=== PATIENT | female | born 1940 | race Caucasian/White ===

== ENCOUNTER → 2016-05-16 | Outpatient (CLI) | payer MEDICARE, OTHER ==
[~2016-05-16] MED LIST: ADIPEX-P37.5 MG PO; AMITRIPTYLINE H10 M1 PO; ARICEPT10 MG PO; ASPIRIN 81M81 MG/TA2 PO; ATIVAN 0.50.5 MG/TAB PO; ATIVAN 1MG T1 MG/TAB PO; CALCIUM 600/VIT1 CAP PO; CEPHALEXIN500 M1 PO; COMPLETE SENIOR1 TA1 PO; CYMBALTA 60MG60 MG PO; DETROL LA 2 MG2 MG PO; DETROL1 MG; EVOXAC30 MG PO; FEMIRON20 MG PO; HCTZ 25MG TAB25 MG PO; LAMICTAL 100MG100 MG PO; MACROBID 1100 MG/CAP PO; MAGNESIUM250 M1 PO; MIDRIN 325 MG-11 CAP PO; MOTRIN 600600 MG/TAB PO; NAMENDA 10MG TA10 MG PO; NEURONTIN300 MG/CAP PO; OMEGA 31000 MG PO; OMEGA-3 FISH1000 MG PO; OSCAL 500 TAB500 MG PO; PLAVIX 75MG TAB75 MG PO; PRILOSEC 20MG20 MG PO; PRISTIQ 50 MG T50 MG PO; PRISTIQ100 MG PO; REQUIP 1MG T1 MG/TAB PO; RESTASIS0.05% OU; TENORMIN 2525 MG/TAB PO; TENORMIN100 MG PO; TOVIAZ8 MG PO; TYLENOL 325MG325 MG PO; ULTRAM 50MG TAB50 MG PO; VITAMIN B-650 MG PO; VITAMIN D31000 IU PO
== END ==
LOC: BHSO 10:43
DX: F33.1 Major depressive disorder, recurrent, moderate (principal)

== ENCOUNTER → 2016-06-29 | Outpatient (CLI) | payer MEDICARE, OTHER | LOC: BHSO 10:39 | DX: F33.1 Major depressive disorder, recurrent, moderate (principal) ==

== ENCOUNTER → 2016-08-21 | Outpatient (CLI) | payer MEDICARE, OTHER | LOC: BHSO 10:26 | DX: F33.41 Major depressive disorder, recurrent, in partial remission (principal) ==

== ENCOUNTER → 2017-02-19 | Outpatient (CLI) | payer MEDICARE, OTHER | LOC: BHSO 11:14 | DX: F41.1 Generalized anxiety disorder (principal) ==

== ENCOUNTER → 2017-04-09 | Outpatient (CLI) | payer MEDICARE, OTHER | LOC: BHSO 11:11 | DX: F41.1 Generalized anxiety disorder (principal) ==

== ENCOUNTER 2021-03-12 21:59 | Inpatient (IN) | payer MEDICARE, OTHER ==
[~2021-03-12] VITALS: Ht 167.6 cm; Wt 73.1 kg
[~2021-03-12 21:59] MED LIST changes: +CALCIUM 600/VIT1 CA1 PO; -CALCIUM 600/VIT1 CAP PO
--- NOTE | 2021-03-12 23:15 | NUR ---
PT ADMITTED PER STRETCHER FROM [facility]. PT AWAKE AND ORIENTED. PLEASANT. RT LEG ROTATED MEDIAL LEFT. PULSES PRESENT. RT FOOT WARM TO TOUCH.
[2021-03-12 23:55] VITALS: BP 109/43; PULSE 120; TEMP 98.5
--- NOTE | 2021-03-13 00:05 | NUR ---
UA OBTAINED AND SENT TO LAB. TELEMETRY INITIATED. PT DENIES PAIN LONG SHE IS STILL. DENIES NEED FOR PAIN MED AT THIS TIME.
[2021-03-13] MEDS ORDERED: B-121000 MCG PO (00:19)
[2021-03-13] MEDS ORDERED: DETROL LA4 PO (00:21)
[2021-03-13 00:22] LABS: COLLECTION METHOD CATHETER
[2021-03-13] MEDS ORDERED: ELIQUIS 5MG PO (00:27)
[2021-03-13] MEDS ORDERED: NORCO 325 MG-51 TAB PO (00:31)
[2021-03-13] MEDS ORDERED: PRAVACHOL 40MG40 MG PO (00:32)
[2021-03-13] MEDS ORDERED: ULTRAM 50MG TAB50 MG PO (00:35)
[2021-03-13 00:36] LABS: MUCOUS Present /lpf; PH 5 (5-8); SQUAMOUS EPITHELIAL 0-2 /hpf; URINE APPEARANCE Clear; URINE BACTERIA None Seen /hpf; URINE BILIRUBIN Negative (NEGATIVE); URINE BLOOD 1+ (NEGATIVE); URINE COLOR Amber; URINE GLUCOSE Negative (NEGATIVE); URINE KETONE Trace (NEGATIVE); URINE LEUKOCYTE ESTERASE Negative (NEGATIVE); URINE NITRATE Negative (NEGATIVE); URINE PROTEIN(semi-quant) 1+ (NEGATIVE); URINE UROBILINOGEN Negative (NEGATIVE)
[2021-03-13 02:05] LABS: CALCIUM 9.4 mg/dL (8.4-10.2); CREATININE, serum 0.8 mg/dL (0.57-1.11); POTASSIUM 3.4 mmol/L (3.5-4.5)
[2021-03-13 02:17] LABS: TROPONIN-I 0.039 ng/mL (0.00-0.033)
[2021-03-13 02:39] LABS: PRE ALBUMIN 7.9 mg/dL (17.6-36.0)
[2021-03-13 04:33] VITALS: BP 127/54; PULSE 109; TEMP 98.5
[2021-03-13 07:32] LABS: CREATININE, serum 0.81 mg/dL (0.57-1.11); POTASSIUM 3.8 mmol/L (3.5-4.5)
--- NOTE | 2021-03-13 07:41 | NUR ---
critical troponin reported to Dr. Luevano @ [id number].
[2021-03-13 08:08] VITALS: BP 144/59; PULSE 102; TEMP 97.5
[2021-03-13 08:24] LABS: BASO % 0.3 % (0.0-2.0); EOS # 0.2 K/mm3 (0.0-0.7); EOS % 1.8 % (0-4.0); GRAN # 7.8 K/mm3 (1.4-6.5); GRAN % 70.4 % (42.2-75.2); HEMOGLOBIN 10.8 g/dl (12.5-16.0); LYMPH # 1.6 K/mm3 (1.2-3.4); LYMPH % 14.7 % (20.0-51.0); MEAN CELL VOLUME 90 fl (80.0-100.0); MEAN CORPUSCULAR HEMOGLOBIN 29 pg (27.0-31.0); MEAN CORPUSCULAR HGB CONC 32 g/dl (33.0-37.0); MEAN PLATELET VOLUME 11.3 fl (7.4-10.4); MONO # 1.4 K/mm3 (0.1-0.6); MONO % 12.3 % (1.7-9.3); PLATELET COUNT 249 K/mm3 (130-400); RED BLOOD COUNT 3.78 M/mm3 (4.10-5.30); REDCELL DISTRIBUTION WIDTH-CV 15.6 % (11.5-14.5)
[2021-03-13 08:31] LABS: HEMATOCRIT 33.9 % (37.0-47.0)
[2021-03-13 12:00] VITALS: BP 115/57; PULSE 86; TEMP 97.3
--- NOTE | 2021-03-13 13:56 | NUR ---
Kathy met with the pt who stated her preference to return home once medically stable. Son, Renzo Izquierdo present [phone] (DPOA). The pt lives at home alone and was independent, but declining the son states. The pt PCP [facility] and gets her medications from [facility] as well. The pt has used [facility] for PT/OT in the past and would like to use them again. The son states he would like for her to go to a assisted living in [place], [place] where he lives as this is her second fall. The pt uses a walker and CPAP as needed. No other needs stated at this time. Sw to await further recommendations and follow up as needed. D/c: Assisted living vs Rehab.
[2021-03-13 16:00] VITALS: BP 131/55; PULSE 88; TEMP 98.9
--- NOTE | 2021-03-13 17:16 | NUR ---
PT TOO DROWSEY AT THIS TIME FOR PO MEDS.
[2021-03-13 19:21] VITALS: BP 119/54; PULSE 77; TEMP 98
--- NOTE | 2021-03-13 20:20 | NUR ---
PT SLEEPY. O2 SAT WNL. WAKES TO TAKE EVENING MEDS. BUCKS TRACTION IN PLACE. PT ABLE TO MOVE TOES. HAS GOOD SENSATION AND WTT RLE. PAIN CONTROLLED AT THIS TIME.
[2021-03-14] VITALS (10 sets, daily range): BP systolic 95–138; BP diastolic 42–77; PULSE 69–118; TEMP 97–98.7
--- NOTE | 2021-03-14 08:45 | NUR ---
Pt doing okay this morning. She does have complaints that her heels hurt, which is her biggest pain complaint. PRN pain medication given. Pt is aware that she is to not have anything to eat or drink for upcoming surgery. Pills were given with sip of water. Right leg in bucks traction. Pt discussed her son coming up to see her. No other needs verbalized
--- NOTE | 2021-03-14 12:00 | NUR ---
Pt off the floor for surgery
--- NOTE | 2021-03-14 15:17 | NUR ---
The patient has a femur fracture and is having surgery today. CARMEN met with the patient's son, Renzo, to review discharge plan and to discuss post-acute rehab. The patient was in surgery. Renzo is in agreement to rehab upon discharge. He reports that the patient went to [facility] in [place] in the past for rehab. He reports that they were looking at assisted living there, but it was too expensive and the patient wanted to return home. He reports that they are interested in applying for Medicaid. CARMEN consulted [facility] financial counselor. Renzo reports that he needs to talk to the patient after surgery to find out if she would prefer a facility around [place] or in [place]. CARMEN provided Renzo with Medicare.gov's list of SNF's in the [place] area. CARMEN educated Renzo on how if they are interested in a facility in [place], there is a possiblity that the facility may not be able to transport. Renzo verbalized understanding. SW to follow up with the patient and Renzo tomorrow on preferences. *Discharge plan: post-acute rehab*
--- NOTE | 2021-03-14 19:05 | NUR ---
Pt back from surgery. She is awake but drowsy. No pain complaints upon arrival to the floor, but is now stating that she is having some pain, PRN given. She is tolerating liquids, advanced diet.
[2021-03-15] VITALS (13 sets, daily range): BP systolic 89–154; BP diastolic 35–72; PULSE 72–132; TEMP 97.5–99.6
--- NOTE | 2021-03-15 00:07 | NUR ---
PT IN AFIB W RVR 120-140'S PT DENIES S/S. Marlen BLANCO CALLED ORDERED CARDIZEM BOLUS IV TO BE GIVEN. TELE CALLED. PUSHED OVER 2 MIN AND MONITORED. BRINGS HEART RATE DOWN TO 100-120'S. POST OP VITALS CYCLING.
--- NOTE | 2021-03-15 02:04 | NUR ---
afib rvr up to 160's. Marlen saldivar notified.Cardizem gtt going to be started. Pt denies any symptoms.
--- NOTE | 2021-03-15 02:39 | NUR ---
CARDIZEM GTT STARTED AT 5ML/HR. AFTER 13 MIN BP DROPS TO 80/40. NOTIFIED SAMUEL AFTER PUTTING GTT ON STANDBY. RECHECK BP 107/72. RESTART GTT AT 2.5ML/HR. PT AWAKE AND ALERT DENIES S/S/ BP SET PER PROTOCOL.
--- NOTE | 2021-03-15 02:55 | NUR ---
TELE NOTIFIED OF CARDIZEM GTT START- SAMUEL BLANCO AT BEDSIDE CHECKING IN. PT SLEEPING.
--- NOTE | 2021-03-15 04:41 | NUR ---
PT CONVERTED TO NSR-TACHY AT 100/ SAMUEL PA NOTIFIED. EKG ORDERD. WILL CONFIRM.
--- NOTE | 2021-03-15 05:00 | NUR ---
CONFIRMED NSR- GTT STOPPED WILL RESUME CARDIZEM PO PER SAMUEL.
--- NOTE | 2021-03-15 06:50 | NUR ---
awake resting in bed, bedside shift report received from SIL Berg
[2021-03-15 07:02] LABS: MEAN CELL VOLUME 89 fl (80.0-100.0); MEAN CORPUSCULAR HGB CONC 32 g/dl (33.0-37.0); MEAN PLATELET VOLUME 11.8 fl (7.4-10.4); PLATELET COUNT 247 K/mm3 (130-400); RED BLOOD COUNT 2.58 M/mm3 (4.10-5.30); REDCELL DISTRIBUTION WIDTH-CV 15.1 % (11.5-14.5)
[2021-03-15 07:17] LABS: HEMOGLOBIN 7.4 g/dl (12.5-16.0); MEAN CORPUSCULAR HEMOGLOBIN 29 pg (27.0-31.0)
[2021-03-15 07:18] LABS: CALCIUM 8.1 mg/dL (8.4-10.2); CREATININE, serum 0.76 mg/dL (0.57-1.11); POTASSIUM 4.4 mmol/L (3.5-4.5)
--- NOTE | 2021-03-15 07:20 | NUR ---
O2 sat of 89 %. Notify primary nurse. Pt was put on Oxygen 1 ml/nc. improvment to 98%.
--- NOTE | 2021-03-15 07:40 | NUR ---
Shift Assessment completed. Brace on RLE. SCD on LLE. Bruise on right forearm. Perry catheter in place with clear peach color output of 125 ml.Telemetry on. Peripheral IV with Ancef infusing.INT in place on left arm.
--- NOTE | 2021-03-15 07:55 | NUR ---
resting in bed, full assessment completed, see interventions for further info, c/o pain to right leg and medicated with roxicodone 5mg, breakfast ordered
[2021-03-15 07:57] LABS: BAND 9 % (0-10); EOSINOPHIL 2 % (0-4); LYMPHOCYTE 11 % (20.0-51.0); METAMYELOCYTE 2 % (0-0); NEUTROPHILS 70 % (42.0-75.2); PLATELET ESTIMATE NORMAL (NORMAL)
--- NOTE | 2021-03-15 08:00 | NUR ---
Using IS to 750 ml x5.
--- NOTE | 2021-03-15 09:29 | NUR ---
Initial visit; Patient thanked Combat Systems Operator for coming to visit her and offering prayer for healing and thanksgiving. Combat Systems Operator will continue to look in on Maribell, praying for God's blessings.
--- NOTE | 2021-03-15 09:45 | NUR ---
physical therapy was in and assisted her up and into recliner, sitting up and eating breakfast at this time, family in to visit
--- NOTE | 2021-03-15 10:44 | NUR ---
The patient's RN notified CARMEN that the son arrived. CARMEN met with the patient and her son, Renzo, to follow up on preference. Renzo reports that they would prefer [facility] in [place]. He reports that he talked to the Ortho doctor and they informed him that they would be okay with the patient transporting, via private vehicle. The patient and Renzo did not have a second preference at this time. They plan on looking over the Medicare.gov list some more. CARMEN attempted to contact the human resources operations coordinator, Cande, at [facility]. CARMEN left her a voicemail and faxed over the referral. Awaiting screen. [facility]: #[phone] fax#[phone]
--- NOTE | 2021-03-15 11:32 | NUR ---
resting in chair and appears to be dozing, eyes closed, resp quiet and easy
--- NOTE | 2021-03-15 12:44 | NUR ---
resting in recliner, she states she is having pain and son says she has abeen complaining to him of pain, medicated with roxicodone 5mg, encouraged to rest
--- NOTE | 2021-03-15 12:57 | NUR ---
Dr Bui and care team in to see patient
--- NOTE | 2021-03-15 13:14 | NUR ---
Cande, at [facility], reports that they are able to accept the patient. She reports that they are working on bed availability and that they might have a bed available tomorrow, but will definitely have one on . SW to update the patient, her son, and the clinical team. Discharge plan: [facility] SNF*
[2021-03-15 13:22] LABS: HEMATOCRIT 24.8 % (37.0-47.0)
--- NOTE | 2021-03-15 13:41 | NUR ---
awake and states pain is better, physical therapy in and will assist her back to bed
--- NOTE | 2021-03-15 14:53 | NUR ---
appears to be sleeping, in bed with eyes closed, resp quiet and easy
--- NOTE | 2021-03-15 16:45 | NUR ---
appears to be dozing, awakened and assisted her with ordering supper
--- NOTE | 2021-03-15 18:14 | NUR ---
sitting up in bed with supper tray but keeps falling asleep, awakened and repositioned to be able to eat
--- NOTE | 2021-03-15 18:57 | NUR ---
bedside shift report given to SIL Coburn
[2021-03-16] VITALS (10 sets, daily range): BP systolic 104–143; BP diastolic 35–84; PULSE 90–107; TEMP 97.5–99.2
--- NOTE | 2021-03-16 02:36 | NUR ---
PT RESTING QUIETLY IN BED. PT IS DROWSY, AWAKENS EASILY TO SPEECH. PT IS ORIENTED X3, PLEASANT. WHILE ADMINISTERING PT'S SCHEDULED TYLENOL, THE TABLETS FALL INTO PT'S BED WHEN PT BRINGS PILL CUP TO MOUTH. UNABLE TO FIND THE PILLS, NEW PILLS ARE PULLED FROM PYXIS. PT DENIES PAIN, SWALLOWS EASILY. MELENDEZ CATHETER DRAINING DARK CARMEN CLOUDY URINE, 250 ML EMPTIED. PT FALLS BACK ASLEEP, RESPIRATIONS UNLABORED. BED ALARM ON, CALL LIGHT WITHIN REACH.
--- NOTE | 2021-03-16 06:19 | NUR ---
LAB HERE TO DRAW BLOOD. PT AWAKENS EASILY, DENIES PAIN. RESPIRATIONS UNLABORED. O2 ON @ 1L NC. PT HAS BEEN VERY DROWSY THROUGHOUT SHIFT, HAS BEEN ORIENTED TO PERSON ET PLACE BUT NOT TIME. PT HAS MELENDEZ CATHETER DRAINING DARK CARMEN CLOUDY URINE, OUTPUT IS AVERAGING 28 ML/HR. PT DOES NOT HAS IVF INFUSING, HAS NOT BEEN DRINKING WELL R/T DROWSINESS. DR. MARQUIS CALLED ET NOTIFIED OF PT CONDITION, NO NEW ORDERS @ THIS TIME.
[2021-03-16 07:11] LABS: HEMATOCRIT 19.8 % (37.0-47.0); HEMOGLOBIN 6.6 g/dl (12.5-16.0)
[2021-03-16 07:26] LABS: CALCIUM 8.3 mg/dL (8.4-10.2); CREATININE, serum 0.67 mg/dL (0.57-1.11); POTASSIUM 4.3 mmol/L (3.5-4.5)
--- NOTE | 2021-03-16 07:35 | NUR ---
Shift assessment complete.Brace on RLE intact.SCD on left leg.Bruise on right forearm.Indwelling catheter in place with output of 20 ml.clear dark yellow urine. INT on right hand catherer slipping out, no redness or pain. Redness on buttocks.Telemetry on.
[2021-03-16 08:16] LABS: MEAN CELL VOLUME 87 fl (80.0-100.0); MEAN CORPUSCULAR HEMOGLOBIN 28 pg (27.0-31.0); MEAN CORPUSCULAR HGB CONC 32 g/dl (33.0-37.0); MEAN PLATELET VOLUME 11.4 fl (7.4-10.4); PLATELET COUNT 236 K/mm3 (130-400); RED BLOOD COUNT 2.35 M/mm3 (4.10-5.30); REDCELL DISTRIBUTION WIDTH-CV 15.7 % (11.5-14.5)
[2021-03-16 08:36] LABS: BAND 17 % (0-10); BASOPHIL 1 % (0-2); EOSINOPHIL 3 % (0-4); LYMPHOCYTE 21 % (20.0-51.0); NEUTROPHILS 55 % (42.0-75.2); OVALOCYTES 1+; PLATELET ESTIMATE NORMAL (NORMAL)
--- NOTE | 2021-03-16 12:09 | NUR ---
Pt has been sitting up in the chair most of the morning. She reports that she is just uncomfortable. Errol with PT assisted with getting her back to bed. Pt has been pretty drowsy today. She did eat breakfast but then slept off and on. Once back in bed she quickly fell asleep. She does wake easily when spoken to. Blood started at 60ml/hr and remained with pt for first 15 minutes.
--- NOTE | 2021-03-16 13:26 | NUR ---
Follow-up visit; Patient thanked Band Straightener for looking in on her and stated when asked that she is resting well.
--- NOTE | 2021-03-16 13:45 | NUR ---
The patient's hemoglobin was low this morning. She is to receive a unit of blood. CARMEN staffed with the patient's PA. The patient may be ready to discharge by Sunday. CARMEN attempted to contact Cande at [facility] to update. CARMEN left her a voicemail and faxed over updates. CARMEN contacted and updated the patient's son, Renzo. He is in agreement to the plan.
--- NOTE | 2021-03-16 14:05 | NUR ---
Pt doing well tolerating the blood transfusion. She continues to be very drowsy, but does wake easily. No requests for food at this time, will continue to monitor
--- NOTE | 2021-03-16 18:30 | NUR ---
Pt slept most of the afternoon. She did wake easily, but would fall back asleep shortly after conversation ended. No complaints of pain while resting. Pt did do well drinking juice, does not drink much water. She reported she has never been much of a water drinker. No other needs, awaiting her dinner tray
--- NOTE | 2021-03-16 21:30 | NUR ---
PT HAS BEEN ASSISTED TO REPOSITION IN BED WITH 2 ASSIST. WHEN TURNING PT, PT HAS AREA OF RED EXCORIATION/SHEARING ON RIGHT UPPER BUTTOCK ET ANOTHER ON COCCYX. PAD UNDERNEATH PT IS SLIGHTLY DAMP. PT HAS SMEAR OF BM ON PAD ET BUTTOCKS. MELENDEZ CATHETER IS DRAINING. PERICARE PROVIDED. MEPILEX DRESSING PLACED ON AREAS OF EXCORIATION. PT IS ALERT ET ORIENTED, NOT DROWSY NIGHT BEFORE. PT IS PLEASANT, ENCOURAGED TO EAT SNACKS ET DRINK, DENIES PAIN. PT STATES THAT SHE DOES NOT DRINK WATER @ HOME ET DOES NOT LIKE IT. PT IS GIVEN PEPSI ET CHOCOLATE ICE CREAM PER REQUEST. PT TALKS ON PHONE TO SON, DENIES OTHER NEEDS @ THIS TIME. RESPIRATIONS UNLABORED. BED ALARM ON, CALL LIGHT WITHIN REACH.
[2021-03-17] VITALS (7 sets, daily range): BP systolic 117–139; BP diastolic 39–49; PULSE 80–87; TEMP 98–98.6
--- NOTE | 2021-03-17 03:41 | NUR ---
PT REPOSITIONED IN BED ONTO LEFT SIDE WITH 2 ASSIST. DENIES OTHER NEEDS. CALL LIGHT WITHIN REACH.
[2021-03-17 06:58] LABS: HEMATOCRIT 23.1 % (37.0-47.0); HEMOGLOBIN 7.6 g/dl (12.5-16.0); MEAN CELL VOLUME 87 fl (80.0-100.0); MEAN CORPUSCULAR HEMOGLOBIN 29 pg (27.0-31.0); MEAN CORPUSCULAR HGB CONC 33 g/dl (33.0-37.0); MEAN PLATELET VOLUME 11.3 fl (7.4-10.4); PLATELET COUNT 244 K/mm3 (130-400); RED BLOOD COUNT 2.66 M/mm3 (4.10-5.30); REDCELL DISTRIBUTION WIDTH-CV 15.5 % (11.5-14.5)
[2021-03-17 07:10] LABS: CALCIUM 8.4 mg/dL (8.4-10.2); CREATININE, serum 0.63 mg/dL (0.57-1.11); POTASSIUM 4.2 mmol/L (3.5-4.5)
[2021-03-17 07:34] LABS: BAND 9 % (0-10); EOSINOPHIL 1 % (0-4); LYMPHOCYTE 19 % (20.0-51.0); METAMYELOCYTE 2 % (0-0); NEUTROPHILS 64 % (42.0-75.2); NUCLEATED RED BLOOD CELL 1 (0-6); OVALOCYTES 1+; PLATELET ESTIMATE NORMAL (NORMAL); SCHISTOCYTES 1+
--- NOTE | 2021-03-17 09:00 | NUR ---
Pt more awake today compared to yesterday. She is very emotional in the fact that we will be helping her with ADLs. She keeps asking if she could just take herself to the bathroom. Informed her that if she tried she would find that she needs our help. Reassured her that this is what we do and we help people everyday. Pt reports she will call when she needs to go. Bed alarm on. Dressing change was done this am by Dr Luevano. No other needs verbalized, pt had breakfast. Call light within reach
--- NOTE | 2021-03-17 13:00 | NUR ---
Pt sat up in the chair most of the morning. She was very emotional about having to use the commode and people having to help her. She was tearful over this and stated that she shouldn't have to go through this. Pain medication given recently. Pt does have a visitor with her at this time. Pt states it is a neighbor that checks on her.
[2021-03-17 16:06] LABS: HEMATOCRIT 22.1 % (37.0-47.0); HEMOGLOBIN 7.4 g/dl (12.5-16.0)
--- NOTE | 2021-03-17 16:27 | NUR ---
The patient is to tentatively discharge tomorrow, 03/17, if her hemoglobin is stable. SW notified Cande at [facility]. She reports that they are all good to accept the patient tomorrow. She reports that they are not able to take the patient on the weekend though, if the patient is not ready by tomorrow. CARMEN contacted and updated the patient's son, Rnezo. Renzo is in agreement to the plan. He reports that the RN informed him of some concerns about him transporting. He reports that he feels comfortable transporting the patient though and takes full responsiblity for her. He reports that he will be at the hospital tomorrow morning. SW read the IM form outloud to him. Renzo verbalized understanding and gave SW approval to sign the form on his behalf. SW to continue to follow.
--- NOTE | 2021-03-17 18:32 | NUR ---
Pt resting in bed, denies any need for pain medications at this time. Pt repositioned d/t sore on bottom. Legs elevated on pillow. Call light within reach.
--- NOTE | 2021-03-17 23:07 | NUR ---
PT REQUESTS TO GO TO BR, IS A&O X3, PLEASANT. PT IS PIVOT TRANSFERRED WITH 2 ASSIST, WALKER, ET GAIT BELT. PT REQUIRES MODERATE TO MAXIMUM ASSISTANCE. PT STATES THAT SHE FEELS LIKE SHE HAD THE URGE TO URINATE ET THEN IS UNABLE TO. PT DOES HAVE LARGE SOFT FORMED BM. PT IS UNABLE TO STAND TO RETURN TO BED, SIT TO STAND IS USED. PT IS BLADDER SCANNED AFTER RETURNING TO BED, SHOWS 282 ML. PT DENIES URGE OR DISCOMFORT @ THIS TIME.
--- NOTE | 2021-03-17 23:12 | NUR ---
Jasson VALENTE APRN NOTIFIED OF PT BEING UNABLE TO VOID ET RESULTS OF BLADDER SCAN. NO NEW ORDERS @ THIS TIME.
[2021-03-18 03:00] VITALS: BP 114/51; PULSE 60; TEMP 98.4
--- NOTE | 2021-03-18 04:30 | NUR ---
PT REQUESTS TO USE BR, FEELS URGE TO VOID. PT IS ASSISTED TO BSC WITH SIT TO STAND ET 2 ASSIST. PT VOIDS A SMALL AMOUNT OF URINE ET HAS SMALL FORMED HARD BM. PT DENIES ANY PAIN, ASSISTED BACK INTO BED. PT IS BLADDER SCANNED, SHOWS >458 ML URINE. ABDOMEN IS DISTENDED ET FIRM. Jasson VALENTE APRN CALLED ET NOTIFIED. NEW ORDER RECEIVED TO INTERMITTENT CATH PT X1. PT TOLERATES PROCEDURE WELL, STERILE TECHNIQUE USED. 575 ML LIGHT CARMEN URINE IS EMPTIED. CHANTELLE CARE PERFORMED. PT IS GIVEN APPLE JUICE TO DRINK, DENIES OTHER NEEDS. BED ALARM ON, CALL LIGHT WITHIN REACH.
--- NOTE | 2021-03-18 07:37 | NUR ---
Pt had complaints of pain in her right leg, PRN pain medication given. She initially reported that her heels were feeling better then when she was admitted. Removed Morgan hose on left leg and heel is bruised. Pt does have pain when pressure applied. Pt reported that she had to use her heels a lot to try and scoot herself when she fell. Both legs elevated on a pillow with heels floated. INT to right hand was out upon assessment. Will notify physician/midlevel as far as orders if we need to restart a new IV. Gave tracy crackers and pudding as well as ordered her some breakfast.
[2021-03-18 07:44] LABS: HEMATOCRIT 22.6 % (37.0-47.0); HEMOGLOBIN 7.2 g/dl (12.5-16.0)
[2021-03-18 07:55] LABS: CALCIUM 8.5 mg/dL (8.4-10.2); CREATININE, serum 0.65 mg/dL (0.57-1.11); POTASSIUM 4.3 mmol/L (3.5-4.5)
[2021-03-18 09:30] VITALS: BP 103/74; PULSE 90; TEMP 98.6
--- NOTE | 2021-03-18 10:00 | NUR ---
Pt up to the commode via PT. Attempted to void, but was not able to. There was a small amount of incontinent urine on the bed pad. Pt also had a small BM. Pt assisted back to bed.
[2021-03-18 12:38] VITALS: BP 130/42; PULSE 88; TEMP 98.3
[2021-03-18 12:52] LABS: HEMATOCRIT 23.3 % (37.0-47.0); HEMOGLOBIN 7.6 g/dl (12.5-16.0)
[2021-03-18] MEDS ORDERED: VITAMIN C500 MG PO (13:39)
[2021-03-18] MEDS ORDERED: CARDIZEM CD 12120 MG PO (13:45)
--- NOTE | 2021-03-18 13:52 | NUR ---
Pt again assisted up to the commode via PT. PT was able to void. Performed post void residual with 200 being the result after a 250ml void. Hospitalist notified, plan for transfer per private vehicle. Son is here to get her at this time
[2021-03-18] MEDS ORDERED: ROXICODONE 55 MG/TAB PO (13:57)
--- NOTE | 2021-03-18 15:00 | NUR ---
Pt has orders for transfer to [facility] in [place]. Assisted pt with getting dressed and Roddy with PT was present to help transfer her to the car. Pts son is driving her to the facility.
--- NOTE | 2021-03-18 15:02 | NUR ---
The hospitalist plans to recheck the patient's hemoglobin again at noon to make sure that it is stable. If it is stable, the hospitalist plans to discharge the patient. CARMEN contacted and updated the patient's son, Renzo. Renzo plans to go ahead and head up to the hospital. The patient's hemoglobin came back stable. The patient is ready to discharge today. CARMEN notified Gabriela at [facility]. They are all good with taking the patient today. The patient is to discharge today, 03/18, to [facility] for a skilled stay. Transportation was provided by private vehicle, via the patient's son. No additional needs at this time.
[2021-03-18 15:03] VITALS: BP 130/42; PULSE 88; TEMP 98.3
--- NOTE | 2021-03-18 15:32 | NUR ---
Report called to [facility]
== END 2021-03-18 15:00 | DRG 481 ==
LOC: MEDICAL 21:59 → SURG 23:31
PROVIDERS: Orthopaedic Surgery; Physician Assistant; Student in an Organized Health Care Education/Training Program; ADMIT Internal Medicine
PROC: 0QS804Z Reposition Right Femoral Shaft with Internal Fixation Device, Open Approach (ICD-10-PCS; principal; 2021-03-14 14:00)
DX: S72.401A Unspecified fracture of lower end of right femur, initial encounter for closed fracture (principal); M97.01XA Periprosthetic fracture around internal prosthetic right hip joint, initial encounter; M62.82 Rhabdomyolysis; E87.2 Acidosis; I48.19 Other persistent atrial fibrillation; Z86.718 Personal history of other venous thrombosis and embolism; F32.A Depression, unspecified; F41.9 Anxiety disorder, unspecified; G89.29 Other chronic pain; E78.5 Hyperlipidemia, unspecified; Z90.710 Acquired absence of both cervix and uterus; W19.XXXA Unspecified fall, initial encounter; Y92.098 Other place in other non-institutional residence as the place of occurrence of the external cause; Z79.01 Long term (current) use of anticoagulants; R27.0 Ataxia, unspecified; D32.9 Benign neoplasm of meninges, unspecified; E87.6 Hypokalemia; G25.81 Restless legs syndrome; Z66 Do not resuscitate; R79.89 Other specified abnormal findings of blood chemistry; D53.9 Nutritional anemia, unspecified; R33.9 Retention of urine, unspecified; Z86.73 Personal history of transient ischemic attack (TIA), and cerebral infarction without residual deficits
CPT/HCPCS: 99231-AI; 99232-AI; 99233-AI; 99239; A9284; C1713; C1776; J0690; J2250; J2270; J2370; J2704; J3010; J3480; J7050; L1832; P9016

== ENCOUNTER 2021-08-30 02:24 | Observation (INO) | payer MEDICARE, OTHER ==
[~2021-08-30] VITALS: Ht 167.6 cm; Wt 73.0 kg
[~2021-08-30 02:24] MED LIST changes: +B-121000 MCG PO; +CARDIZEM CD 12120 MG PO; +DETROL LA4 PO; +ELIQUIS 5MG PO; +NORCO 325 MG-51 TAB PO; +PRAVACHOL 40MG40 MG PO; +ROXICODONE 55 MG/TAB PO; +VITAMIN C500 MG PO
--- NOTE | 2021-08-30 03:00 | NUR ---
PT ARRIVES PER EMS FROM [facility] [place] [place] WITH FRACTURED RT HIP. IS ALERT AND ORIENTED X4. ORIENTED TO ROOM AND BED CONTROLS.
[2021-08-30] MEDS ORDERED: MELATIN 3 MG-11 TAB PO (03:23)
[2021-08-30 03:26] VITALS: BP 150/68; PULSE 81; TEMP 98.9
[2021-08-30] MEDS ORDERED: DETROL LA4 PO (03:29)
[2021-08-30] MEDS ORDERED: ULTRAM 50MG TAB50 MG PO (03:30)
[2021-08-30] MEDS ORDERED: VITAMIN D31000 IU PO (03:30)
[2021-08-30] MEDS ORDERED: PEPCID 20MG TAB20 MG PO (04:05)
[2021-08-30] MEDS ORDERED: TOVIAZ8 MG PO (04:06)
[2021-08-30] MEDS ORDERED: PROZAC 10MG10 MG PO (04:09)
[2021-08-30] MEDS ORDERED: MIRALAX510G PO (04:14)
--- NOTE | 2021-08-30 05:30 | NUR ---
INSERTED #16FR MELENDEZ CATHETER, IMMEDIATE RETURN OF DK YELLOW URINE. PLACED TO BSD. PT TOLERATED PROCEDURE WITHOUT COMPLAINT.
[2021-08-30 05:51] LABS: COLLECTION METHOD CATHETER
[2021-08-30 05:57] LABS: MUCOUS Present (NOT PRESENT); PH 6 (5-8); SQUAMOUS EPITHELIAL None Seen /hpf (0-10); URINE APPEARANCE Clear (CLEAR/HAZY); URINE BACTERIA None Seen /hpf (NONE SEEN); URINE BILIRUBIN Negative (NEGATIVE); URINE BLOOD Negative (NEGATIVE); URINE COLOR Yellow (YELLOW); URINE GLUCOSE Negative (NEGATIVE); URINE KETONE Negative (NEGATIVE); URINE LEUKOCYTE ESTERASE Negative (NEGATIVE); URINE NITRATE Negative (NEGATIVE); URINE PROTEIN(semi-quant) Negative (NEGATIVE); URINE RBC 0-2 /hpf (0-2); URINE UROBILINOGEN Negative (NEGATIVE)
--- NOTE | 2021-08-30 06:00 | NUR ---
#22 INSYTE INSERTED TO RFA BY JESSICA MUJICA, FLUSHES WELL. MEDICATED WITH SCHEDULED ES TYLENOL AND REQUIP AT THIS TIME.
[2021-08-30 06:06] LABS: BASO % 0.4 % (0.0-2.0); EOS # 0.1 K/mm3 (0.0-0.7); EOS % 1.5 % (0.0-4.0); GRAN # 3.8 K/mm3 (1.4-6.5); GRAN % 69.6 % (42.2-75.2); HEMATOCRIT 37.2 % (37.0-47.0); HEMOGLOBIN 11.7 g/dl (12.5-16.0); LYMPH % 17.7 % (20.0-51.0); MEAN CELL VOLUME 91 fl (80.0-100.0); MEAN CORPUSCULAR HEMOGLOBIN 29 pg (27-31); MEAN CORPUSCULAR HGB CONC 32 g/dl (33.0-37.0); MEAN PLATELET VOLUME 11.3 fl (7.4-10.4); MONO # 0.6 K/mm3 (0.1-0.6); MONO % 10.4 % (1.7-9.3); PLATELET COUNT 216 K/mm3 (130-400); RED BLOOD COUNT 4.11 M/mm3 (4.10-5.30); REDCELL DISTRIBUTION WIDTH-CV 16.9 % (11.5-14.5)
[2021-08-30 06:19] LABS: ALBUMIN 3.6 gm/dL (3.4-4.8); BILIRUBIN,TOTAL 0.9 mg/dL (0.2-1.2); CALCIUM 8.8 mg/dL (8.4-10.2); POTASSIUM 4.2 mmol/L (3.5-4.5); TOTAL PROTEIN 6.4 gm/dL (6.2-8.1)
[2021-08-30 06:20] LABS: INR 1.2 (0.8-3.0); PROTHROMBIN TIME 13.9 SECONDS (9.7-12.8)
[2021-08-30 07:33] VITALS: BP 137/42; PULSE 84; TEMP 98.2
--- NOTE | 2021-08-30 08:45 | NUR ---
ORTHO CALLED AND SAID NO SURGERY REQUIRED. PATIENT CAN EAT. SEE ORDERS.
--- NOTE | 2021-08-30 09:03 | NUR ---
ASSESSMENT COMPLETE. PT. DROWSY BUT ORIENTED. INT PATENT TO RIGHT WRIST. MELENDEZ SECURED AND DEPENDENT TO DRAINAGE. PT WITH PT. CURRENTLY ASSISTING TO CHAIR.NO COMPLIMENTS OF PAIN. CALL LIGHT WITHIN REACH. NO FURTHER NEEDS AT THIS TIME.
--- NOTE | 2021-08-30 10:26 | NUR ---
Initial visit; Patient appeared to appreciate having someone to listen to her story which is a very difficult one to hear. Patient is of Afghan descent and very interesting and thanked Emergency Medical Service Manager for listening and offering prayer. Emergency Medical Service Manager mentioned to Maribell that she is available to her while she is here and left her card with her.
--- NOTE | 2021-08-30 11:53 | NUR ---
NORA Joens. PT. TOLERATED PROCEDURE WELL. PT. DID COMPLAIN OF RIGHT HEEL PAIN. RIGHT LEG WAS PROPPED UP ON A PILLOW AND HEEL ELEVATED OFF BED.
[2021-08-30 12:09] VITALS: BP 120/55; PULSE 76; TEMP 98
--- NOTE | 2021-08-30 13:10 | NUR ---
CARMEN and CARMEN dunlap met with the patient to discuss discharge plan. The patient lives alone in [place]. She states that she has great friend/neighbor support. She reports independence with ADLs and has a walker and wheelchair. She states that she takes sponge bathes now and that she home health services from [facility]. CARMEN dunlap contacted [facility] and confirmed services. The patient receives primary care and her medications from [facility]. She could not recall what her provider's name is, but states that it is a female provider. The patient does not have a DPOA-HC in EMR, but she states that she completed a new DPOA-HC on [place] and designated a couple that helps her. She does not a copy of the document. The patient states that she is and has only one living child: Renzo. She states that her and Renzo had a falling out and she does not want him contacted. She states that Renzo had got her into an assisted living in [place], but she could not afford their rates. She asked to stay with Renzo and his for couple of days, but Renzo's said no. Renzo then brought the patient back to her home in [place]. CARMEN inquired if the patient would be interested in completing a DPOA-HC while here. The patient was interested in this. CARMEN provided the form. The patient designated her friends: Alix Fonseca (ph#[phone]) and Jian Fonseca (ph#[phone]). They are and live in [place]. CARMEN and Mynor, social work student, witnessed the patient's signature. CARMEN provided the patient the original and some copies. CARMEN placed a copy in the patient's chart. The patient has a hip fracture, but will not require surgery. Due to the fracture and the patient's recent falls, CARMEN discussed post-acute rehab. The patient is interested in rehab and chose 1) [facility] 2) [facility]. CARMEN consulted IPR Director. CARMEN contacted and faxed a referral to [facility]. Awaiting screens. The patient also has Medicare [employer] and will need auth from insurance for rehab. The patient's friend/DPOA-HC, Alix, then arrived to the hospital. CARMEN reviewed the above with Alix. Alix is in agreement to the plan and of being the patient's DPOA-HC. *Discharge plan: post-acute rehab*
--- NOTE | 2021-08-30 15:00 | NUR ---
Gloria, at [facility], reports that they have declined the patient. Miracle, IPR Director, states that she has submitted for auth. Awaiting insurance.
--- NOTE | 2021-08-30 15:27 | NUR ---
CARMEN faxed a referral to [facility] and [facility], in the event insurance denies IPR.
--- NOTE | 2021-08-30 15:43 | NUR ---
A rep from [facility] contacted this SW. Their medical center manager is denying IPR and is recommending an alternate level of care. A [id number] can be done and the deadline is 09/01. CARMEN confirmed this with Miracle IPR Director. CARMEN faxed the patient's records to [facility] for auth on SNF. CARMEN notified [facility] and [facility].
[2021-08-30 15:44] VITALS: BP 122/49; PULSE 76; TEMP 99
[2021-08-30 20:16] VITALS: BP 119/48; PULSE 75; TEMP 99.5
--- NOTE | 2021-08-30 22:54 | NUR ---
PATIENT ALERT AND ORIENTED. SITTING IN BED. MEDS ADMINISTERED PER EMAR. PATIENT AMBULATED WITH STANDBY ASSIST AND USE OF WALKER TO BATHROOM AND VOIDED CLEAR YELLOW URINE. INT R FA PATENT AND FLUSHES EASILY. TELE SHOWING SINUS RHYTHM. ICE TO R HIP. DENIES NEEDS FOR ADDITIONAL PAIN MEDS OUTSIDE OF SCHEDULED PROTOCOL. CURRENTLY RESTING IN BED. CALL LIGHT IN REACH. BED ALARM ON.
[2021-08-30 23:47] VITALS: BP 132/43; PULSE 68; TEMP 98.1
[2021-08-31 03:32] VITALS: BP 143/54; PULSE 81; TEMP 97.5
[2021-08-31 08:00] VITALS: BP 116/65; PULSE 71; TEMP 98.1
--- NOTE | 2021-08-31 09:19 | NUR ---
ASSESSMENT COMPLETE. PT. SITTING UP IN CHAIR EATING BREAKFAST. A&O X4. PT. TOLERATED WALKING IN HALWWAY WITH THERAPY WELL. HOPING FOR DISCHARGE. CALL LIGHT WITHIN REACH. NO FURTHER NEEDS AT THIS TIME.
--- NOTE | 2021-08-31 10:16 | NUR ---
Follow-up visit; Patient surprised and appeared happy to see Therapy Technician again. She is preparing to be discharged to Assisted Living.
--- NOTE | 2021-08-31 11:31 | NUR ---
Sandie, at [facility], contacted this SW. They are still reviewing the patient's case and determining if they would need their center medical director to review it. Caitlyn, at [facility], reports that they are able to accept the patient for a skilled stay tomorrow, pending insurance auth. CARMEN met with the patient to update. The patient is agreeable to going to [facility]. If insurance denies SNF, she states that she is fine with going home and resuming services from [facility]. CARMEN contacted and updated the patient's friend/DPOA-HC, Alix. CARMEN faxed updates to [facility] and [facility].
[2021-08-31 11:52] VITALS: BP 120/45; PULSE 72; TEMP 97.7
--- NOTE | 2021-08-31 15:42 | NUR ---
Sandie, [facility], states that insurance has approved a skilled stay. AuthID#[id number]. Starting 08/30, with the next review date of 09/01. CARMEN notified Sandie how [facility] is the accepting facility. Sandie states that [facility] is actually not in contract with [facility] and that the patient could go there, but the patient could occur more [id number] costs. She states that [facility] [place] and [facility] are in-network, along with [facility]. Jorge, at [facility], reports that they have declined the patient; due to past finance issues with the patient. CARMEN met with the patient to update on the above. The patient states that she can not afford to have any [id number] costs from going to [facility]. She states that she would prefer to just return home with [facility]. CARMEN informed her of the option of trying for [facility] or [facility]. The patient declined and states that she would rather return home. CARMEN notified the clinical team. CARMEN contacted and updated the patient's friend/DPOA-HC, Alix.
[2021-08-31 16:00] VITALS: BP 119/90; PULSE 70; TEMP 98.1
[2021-08-31 19:27] VITALS: BP 101/72; PULSE 69; TEMP 98.5
[2021-08-31 23:21] VITALS: BP 125/48; PULSE 66; TEMP 98.6
--- NOTE | 2021-09-01 03:11 | NUR ---
PATIENT ALERT AND ORIENTED. C/O MILD HEEL PAIN AT SHIFT CHANGE, REFUSED MEDICATIONS FOR THIS BUT HEELS FLOATED WITH PILLOW AT THIS TIME. MEDS PER EMAR. UP WITH STANDBY ASSIST AND USE OF WALKER TO BATHROOM, VOIDED CLEAR YELLOW URINE AND A SMALL HARD BROWN STOOL. TELE IN PLACE. INT R FA PATENT AND FLUSHES EASILY. REMAINS ON ROOM AIR. CURRENTLY SITTIN UP IN BED WATCHING TV, DENIES NEEDS, CALL LIGHT IN REACH.
[2021-09-01 03:12] VITALS: BP 121/49; PULSE 69; TEMP 98.6
[2021-09-01 08:00] VITALS: BP 104/84; PULSE 71; TEMP 98.6
--- NOTE | 2021-09-01 08:30 | NUR ---
Pt doing well and is hoping/planning on discharging today. Pt planning on going home but thinking about [place]. Pt denies pain, call light withinr each, pt eating breakfast.
[2021-09-01] MEDS ORDERED: ASPIRIN 81M81 MG/TA2 PO (09:00)
[2021-09-01] MEDS ORDERED: ULTRAM 50MG TAB50 MG PO (09:48)
--- NOTE | 2021-09-01 09:54 | NUR ---
Caitlyn, at [facility], contacted this SW. She states that their finance team checked both the patient's insurances. Her [employer] pays 50% and her [employer] pays for the other 50%, so she should be covered for SNF. She states that they can still take the patient today. CARMEN met with the patient and updated her on the above. The patient verbalized understanding and reports that she is okay with pursuing with [facility], since her [employer] will potato picker the rest of the costs. CARMEN notified the clinical team and [facility]. CARMEN contacted and updated the patient's friend/DPOA-HC, Alix. She is also in agreement to the plan. The patient is to discharge today, 09/01, to [facility] for a skilled stay. Transportation was scheduled at 1100, via [facility]. CARMEN informed the patient, her RN, and Alix of the time. No additional needs at this time.
--- NOTE | 2021-09-01 10:12 | NUR ---
Follow-up visit; Patient preparing to be transferred to [facility] and thanked for her prayers and visits. Slip Bridge Operator will keep Maribell in her prayers.
--- NOTE | 2021-09-01 10:41 | NUR ---
[employer] is denying the patient's inpatient stay. The patient was downgraded to observation. CARMEN and CARMEN student met with the patient to notify and presented and read the Medicare Outpatient Observation Form Outloud to the patient. The patient verbalized understanding and signed the form. CARMEN student provided her with a copy. The patient informed CARMEN that she always had Medicare Part A & B and does not believe she has Medicare [employer]. CARMEN notified admissions and financial counseling and asked them to verify insurance.
[2021-09-01 11:15] VITALS: BP 104/84; PULSE 71; TEMP 98.6
--- NOTE | 2021-09-01 11:26 | NUR ---
Pt did well through the morning. Pt did decide to go to [facility]. Pt dresesed and int removed from right forearm. Pt did have a visitor with her and did follow her down during transport. Report called to [facility]
== END 2021-09-01 11:27 ==
LOC: SURG 02:24
PROVIDERS: Student in an Organized Health Care Education/Training Program; ADMIT Student in an Organized Health Care Education/Training Program
DX: S72.111A Displaced fracture of greater trochanter of right femur, initial encounter for closed fracture (principal); D64.9 Anemia, unspecified; I48.91 Unspecified atrial fibrillation; E78.5 Hyperlipidemia, unspecified; F41.9 Anxiety disorder, unspecified; G25.81 Restless legs syndrome; N32.81 Overactive bladder; Z79.899 Other long term (current) drug therapy; Z79.01 Long term (current) use of anticoagulants
CPT/HCPCS: 99222-AI; 99232-AI; 99239; A4314; G0378

== ENCOUNTER → 2021-09-12 | Outpatient (CLI) | payer MEDICARE, OTHER ==
[~2021-09-12] MED LIST changes: +MELATIN 3 MG-11 TAB PO; +MIRALAX510G PO; +PEPCID 20MG TAB20 MG PO; +PROZAC 10MG10 MG PO
[2021-09-12 12:12] LABS: COLLECTION METHOD CLEAN CATCH
[2021-09-12 12:20] LABS: PH 5 (5-8); SQUAMOUS EPITHELIAL None Seen /hpf (0-10); URINE APPEARANCE Clear (CLEAR/HAZY); URINE BACTERIA None Seen /hpf (NONE SEEN); URINE BILIRUBIN Negative (NEGATIVE); URINE BLOOD Negative (NEGATIVE); URINE COLOR Straw (YELLOW); URINE GLUCOSE Negative (NEGATIVE); URINE KETONE Negative (NEGATIVE); URINE LEUKOCYTE ESTERASE Negative (NEGATIVE); URINE NITRATE Negative (NEGATIVE); URINE PROTEIN(semi-quant) Negative (NEGATIVE); URINE RBC None Seen /hpf (0-2); URINE UROBILINOGEN Negative (NEGATIVE); URINE WBC 0-2 /hpf (0-2)
[2021-09-12 12:21] LABS: BASO % 0.7 % (0.0-2.0); EOS # 0.2 K/mm3 (0.0-0.7); EOS % 3.7 % (0.0-4.0); GRAN # 3.4 K/mm3 (1.4-6.5); GRAN % 63.5 % (42.2-75.2); HEMATOCRIT 39.7 % (37.0-47.0); HEMOGLOBIN 12.2 g/dl (12.5-16.0); LYMPH # 1.3 K/mm3 (1.2-3.4); LYMPH % 23.7 % (20.0-51.0); MEAN CELL VOLUME 94 fl (80.0-100.0); MEAN CORPUSCULAR HEMOGLOBIN 29 pg (27-31); MEAN CORPUSCULAR HGB CONC 31 g/dl (33.0-37.0); MEAN PLATELET VOLUME 11.3 fl (7.4-10.4); MONO # 0.4 K/mm3 (0.1-0.6); PLATELET COUNT 289 K/mm3 (130-400); RED BLOOD COUNT 4.23 M/mm3 (4.10-5.30); REDCELL DISTRIBUTION WIDTH-CV 16.3 % (11.5-14.5)
[2021-09-12 12:22] LABS: ALBUMIN 3.9 gm/dL (3.4-4.8); BILIRUBIN,TOTAL 0.3 mg/dL (0.2-1.2); CALCIUM 9.7 mg/dL (8.4-10.2); CREATININE, serum 0.92 mg/dL (0.57-1.11); POTASSIUM 4.4 mmol/L (3.5-4.5); TOTAL PROTEIN 6.6 gm/dL (6.2-8.1)
== END ==
LOC: ZCOL.LAB 11:44
PROVIDERS: Family Medicine
DX: E78.5 Hyperlipidemia, unspecified (principal); N39.0 Urinary tract infection, site not specified

== ENCOUNTER 2022-01-16 13:50 | Inpatient (IN) | payer MEDICARE, OTHER ==
[~2022-01-16] VITALS: Ht 170.2 cm; Wt 73.2 kg
--- NOTE | 2022-01-16 15:59 | NUR ---
Initial visit; Patient requested visit from Telegraph Equipment Maintainer from Emergency Room. Telegraph Equipment Maintainer listened, offered comfort and prayer, assuring patient she would continue to look in on her while she is hospitalized. Maribell remembers Telegraph Equipment Maintainer from previous visit and states Telegraph Equipment Maintainer offered comfort for her and thanked Telegraph Equipment Maintainer for coming.
[2022-01-16 18:15] VITALS: BP 184/71; PULSE 103; TEMP 98.9
[2022-01-16 18:19] LABS: COLLECTION METHOD CATHETER
[2022-01-16 18:27] LABS: URINE APPEARANCE Clear (CLEAR/HAZY); URINE BLOOD Negative (NEGATIVE); URINE COLOR Yellow (YELLOW); URINE GLUCOSE Negative (NEGATIVE); URINE KETONE Negative (NEGATIVE); URINE NITRATE Negative (NEGATIVE); URINE PROTEIN(semi-quant) Negative (NEGATIVE); URINE UROBILINOGEN 0.2 E.U/dL (0.2-1.0)
[2022-01-16 18:28] LABS: SQUAMOUS EPITHELIAL None Seen /hpf (0-10); URINE BACTERIA None Seen /hpf (NONE SEEN); URINE RBC 0-2 /hpf (0-2); URINE WBC 0-2 /hpf (0-2)
[2022-01-16] MEDS ORDERED: ELIQUIS 5MG PO (18:36)
[2022-01-16] MEDS ORDERED: MYRBETR50MG PO (18:40)
[2022-01-16] MEDS ORDERED: CYMBALTA 60MG60 MG PO (18:41)
--- NOTE | 2022-01-16 19:24 | NUR ---
Patient admitted to room 344 from Er. Patient has Int to Rfa. Perry inserted after orders obtained from Marlen Shrestha, Patient tolerated well and Ua sent to lab. Ekg & labs obtained. Patient Reports elevated pain. Worse pain she has ever had of all of her surgerys, spoke to Marlen Shrestha again and medications ordered and given to patient with a snack. Dinner tray ordered, patient has very dry mouth and complains of hunger. Patient concerned about her purse, I did call and speak to Jian who was with patient when EMS arrived and patient purse and phone are still at home. Patient made aware. Jian to visit patient tmrw morning & bring her belongings. I attempted to complete patient medication list & patient was unsure of her medication, Jian to bring medication list in the morning. Jian to given patient room phone number to call patient. Sangeetha MUJICA to resumes cares.
[2022-01-16 19:49] LABS: PARTIAL THROMBOPLASTIN TIME 36.7 SECONDS (26.0-37.0)
[2022-01-16 19:50] VITALS: BP 152/56; PULSE 108; TEMP 98.7
[2022-01-17] VITALS (7 sets, daily range): BP systolic 112–144; BP diastolic 51–65; PULSE 90–94; TEMP 97.3–99.7
--- NOTE | 2022-01-17 03:11 | NUR ---
PTT 106.6- at goal, no change, continues @ 13 cc/hr, next level ordered @0900
[2022-01-17 07:25] LABS: BASO % 0.2 % (0.0-2.0); EOS # 0.1 K/mm3 (0.0-0.7); EOS % 0.8 % (0.0-4.0); GRAN # 4.7 K/mm3 (1.4-6.5); GRAN % 73.5 % (42.2-75.2); LYMPH % 16.1 % (20.0-51.0); MEAN CELL VOLUME 92 fl (80.0-100.0); MEAN CORPUSCULAR HEMOGLOBIN 30 pg (27-31); MEAN CORPUSCULAR HGB CONC 32 g/dl (33.0-37.0); MEAN PLATELET VOLUME 12.4 fl (7.4-10.4); MONO # 0.6 K/mm3 (0.1-0.6); MONO % 8.9 % (1.7-9.3); PLATELET COUNT 205 K/mm3 (130-400); REDCELL DISTRIBUTION WIDTH-CV 14.5 % (11.5-14.5)
[2022-01-17 07:31] LABS: ALBUMIN 3.1 gm/dL (3.4-4.8); CALCIUM 8.7 mg/dL (8.4-10.2); CREATININE, serum 0.79 mg/dL (0.57-1.11); MAGNESIUM 1.5 mg/dL (1.6-2.6); PHOSPHOROUS 3.3 mg/dL (2.3-4.7); POTASSIUM 3.5 mmol/L (3.5-4.5)
[2022-01-17 07:37] LABS: HEMATOCRIT 34.1 % (37.0-47.0)
--- NOTE | 2022-01-17 10:12 | NUR ---
PT RESTING IN BED HEELS FLOATED WITH BOOTIES. PT REQUESTING PAIN MEDS GIVEN ORDERED. PT'S ELIQUIS BEING HELD FOR SURGERY. HEPARIN RUNNING AT THIS TIME.
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
--- NOTE | 2022-01-17 21:00 | NUR ---
PATIENT IS RESTING IN BED.PATIENT IS AOX1.PATIENT DENIES PAIN.PATIENT TAKES PILLS WHOLE WITH NO TROUBLE.PATIENT IS ON HEPARIN DRIP.PTT WAS DONE NO RATE CHANGE REQUIRED.PATIENT HAS A MELENDEZ DRAINING CLEAR URINE.sAFETY MEASURES IN PLACE.nO OTHER NEEDS AT THIS TIME.
[2022-01-18] VITALS (7 sets, daily range): BP systolic 91–148; BP diastolic 39–57; PULSE 57–89; TEMP 96.3–100.4
--- NOTE | 2022-01-18 05:52 | NUR ---
PATIENT SLEPT FOR THE MOST PART OF THE NIGHT.NO PAIN REPORTED.PATIENT HAS A MELENDEZ DRAINING CLEAR URINE.SAFETY MEASURES IN PLACE.NO OTHER NEEDS AT THIS TIME.
[2022-01-18 06:35] LABS: BASO % 0.3 % (0.0-2.0); EOS # 0.1 K/mm3 (0.0-0.7); EOS % 0.9 % (0.0-4.0); GRAN # 4.8 K/mm3 (1.4-6.5); GRAN % 71.8 % (42.2-75.2); HEMOGLOBIN 10.4 g/dl (12.5-16.0); LYMPH % 14.8 % (20.0-51.0); MEAN CELL VOLUME 92 fl (80.0-100.0); MEAN CORPUSCULAR HEMOGLOBIN 30 pg (27-31); MEAN CORPUSCULAR HGB CONC 32 g/dl (33.0-37.0); MEAN PLATELET VOLUME 12.5 fl (7.4-10.4); MONO # 0.8 K/mm3 (0.1-0.6); MONO % 11.9 % (1.7-9.3); PLATELET COUNT 196 K/mm3 (130-400); RED BLOOD COUNT 3.51 M/mm3 (4.10-5.30); REDCELL DISTRIBUTION WIDTH-CV 14.7 % (11.5-14.5)
[2022-01-18 06:43] LABS: HEMATOCRIT 32.2 % (37.0-47.0)
[2022-01-18 07:01] LABS: ALBUMIN 2.8 gm/dL (3.4-4.8); CALCIUM 8.6 mg/dL (8.4-10.2); CREATININE, serum 0.8 mg/dL (0.57-1.11); MAGNESIUM 1.9 mg/dL (1.6-2.6); PHOSPHOROUS 3.5 mg/dL (2.3-4.7); POTASSIUM 3.7 mmol/L (3.5-4.5)
--- NOTE | 2022-01-18 07:21 | NUR ---
Received shift report from night nurse, Addy Nuñez, RN
--- NOTE | 2022-01-18 09:42 | NUR ---
Follow-up visit; Patient thanked for stopping. She is distraught about Maribell's friends signing over their [id number] to her son whom she states does not have her best interest at heart. urges Maribell to look to God, to have give Him her concerns and don't take them back. In doing this she will heal more rapidly and feel better emotionly. She thanked Information Technology Account Manager for listening and talking with her and helping her.
--- NOTE | 2022-01-18 11:16 | NUR ---
Patient laying in bed , alert and oriented. Heparin gtts infusing at 12.5. Had an order change to 13.5. New bag of heparin hange verified by an RN and started rate at 13.5. Tele in place, pressure boots on bilaterally. Perry catheter in place draining taty urine in bag. Dresing on left elbow intact and noted small amount of drainage. Patient denies pain at this visit.
--- NOTE | 2022-01-18 11:56 | NUR ---
PSYCH AT BEDSIDE TO DO EVAL, SEE NOTE.
[2022-01-19] VITALS (15 sets, daily range): BP systolic 89–139; BP diastolic 35–73; PULSE 65–84; TEMP 96.8–98.5
[2022-01-19 03:47] LABS: BASO % 0.3 % (0.0-2.0); EOS # 0.1 K/mm3 (0.0-0.7); EOS % 1.1 % (0.0-4.0); GRAN # 5.4 K/mm3 (1.4-6.5); GRAN % 71.9 % (42.2-75.2); LYMPH # 1.1 K/mm3 (1.2-3.4); LYMPH % 14.8 % (20.0-51.0); MEAN CELL VOLUME 90 fl (80.0-100.0); MEAN CORPUSCULAR HGB CONC 33 g/dl (33.0-37.0); MEAN PLATELET VOLUME 11.5 fl (7.4-10.4); MONO # 0.9 K/mm3 (0.1-0.6); MONO % 11.6 % (1.7-9.3); PLATELET COUNT 181 K/mm3 (130-400); RED BLOOD COUNT 3.25 M/mm3 (4.10-5.30); REDCELL DISTRIBUTION WIDTH-CV 14.6 % (11.5-14.5)
[2022-01-19 03:48] LABS: HEMATOCRIT 29.2 % (37.0-47.0); HEMOGLOBIN 9.5 g/dl (12.5-16.0); MEAN CORPUSCULAR HEMOGLOBIN 29 pg (27-31)
[2022-01-19 04:25] LABS: ALBUMIN 2.5 gm/dL (3.4-4.8); CALCIUM 8.8 mg/dL (8.4-10.2); CREATININE, serum 0.79 mg/dL (0.57-1.11); MAGNESIUM 1.9 mg/dL (1.6-2.6); PHOSPHOROUS 3.5 mg/dL (2.3-4.7); POTASSIUM 4.4 mmol/L (3.5-4.5)
--- NOTE | 2022-01-19 07:43 | NUR ---
Heparin drip turned off at [address] Luevano.
--- NOTE | 2022-01-19 10:25 | NUR ---
Follow-up visit; Patient thanked Lighter Captain and told her how much she appreciated her kindness. Lighter Captain offered prayer for her and while offering prayer patient slept. Lighter Captain will follow up.
--- NOTE | 2022-01-19 16:28 | NUR ---
Patient has surgery today. Clinical referral for SNF faxed to: [facility] at [facility]
--- NOTE | 2022-01-20 02:40 | NUR ---
Patient is pleasantly confused, thought that she is at home, still on heparin drip, with IV on right forearm with ongoing D5LR at 100cc/hr and heparin drip at 16.5cc/hr, INT to left forearm newly inserted, SCD's and ALEXIA dinh on, will continue to monitor.
[2022-01-20 03:36] VITALS: BP 135/42; PULSE 85; TEMP 98.7
--- NOTE | 2022-01-20 06:29 | NUR ---
Patient only slept for few hours, still confused, ongoing heparin drip at 16.5 cc/hr, PTT drawn by the lab awaiting for result.
[2022-01-20 07:16] LABS: BASO % 0.3 % (0.0-2.0); EOS # 0.1 K/mm3 (0.0-0.7); EOS % 1.3 % (0.0-4.0); GRAN # 5.3 K/mm3 (1.4-6.5); GRAN % 69.7 % (42.2-75.2); INR 1.2 (0.8-3.0); LYMPH # 1.2 K/mm3 (1.2-3.4); MEAN CELL VOLUME 90 fl (80.0-100.0); MEAN CORPUSCULAR HGB CONC 33 g/dl (33.0-37.0); MEAN PLATELET VOLUME 12.5 fl (7.4-10.4); MONO # 0.9 K/mm3 (0.1-0.6); MONO % 12.2 % (1.7-9.3); PLATELET COUNT 222 K/mm3 (130-400); PROTHROMBIN TIME 13.6 SECONDS (9.7-12.8); RED BLOOD COUNT 3.06 M/mm3 (4.10-5.30); REDCELL DISTRIBUTION WIDTH-CV 14.7 % (11.5-14.5)
[2022-01-20 07:19] LABS: PARTIAL THROMBOPLASTIN TIME 68.3 SECONDS (26.0-37.0)
[2022-01-20 07:20] LABS: HEMATOCRIT 27.4 % (37.0-47.0); HEMOGLOBIN 8.9 g/dl (12.5-16.0); MEAN CORPUSCULAR HEMOGLOBIN 29 pg (27-31)
[2022-01-20 07:35] LABS: ALBUMIN 2.2 gm/dL (3.4-4.8); CALCIUM 8.4 mg/dL (8.4-10.2); CREATININE, serum 0.77 mg/dL (0.57-1.11); MAGNESIUM 1.7 mg/dL (1.6-2.6); POTASSIUM 3.6 mmol/L (3.5-4.5)
[2022-01-20 08:32] VITALS: BP 139/43; PULSE 84; TEMP 98.3
--- NOTE | 2022-01-20 09:06 | NUR ---
Follow-up visit; Patient thanked Kiln Transfer Operator for checking on her every day and said she would be moving on to rehabilitation elsewhere. She is hoping to improve quickly and thanked Kiln Transfer Operator for being with her through her stay at [facility].
--- NOTE | 2022-01-20 10:09 | NUR ---
On 01/18/22, social service worker contacted Jian Fonseca and discussed a notarized document regarding patient's advance directives. Jian stated that patient had previously made he and his , Alix her durable power of mergers and acquisitions attorney's for health care and that they were not consulted in this decision and do not and will not act as patient's durable power of mergers and acquisitions attorney's for health care. Jian and Alix signed a document on 01/17/22 to this affect. Worker notified nursing staff that patient's current durable power of mergers and acquisitions attorney, appointing Kwame is null and void. Patient is alert and can make her own decisions at this time.
[2022-01-20] MEDS ORDERED: MULTI VITAMINS1 TAB PO (12:09)
[2022-01-20] MEDS ORDERED: VITAMIN C500 MG PO (12:11)
[2022-01-20] MEDS ORDERED: OMEGA-3 FISH1000 MG PO (12:12)
[2022-01-20] MEDS ORDERED: PRAVACHOL 40MG40 MG PO (12:12)
[2022-01-20] MEDS ORDERED: ELIQUIS 5MG PO (12:12)
[2022-01-20] MEDS ORDERED: ROXICODONE 55 MG/TAB PO (12:13)
[2022-01-20] MEDS ORDERED: ASPIRIN 81M81 MG/TA2 PO (12:13)
[2022-01-20] MEDS ORDERED: CARDIZEM CD 12120 MG PO (12:13)
[2022-01-20] MEDS ORDERED: PROZAC 10MG10 MG PO (12:14)
[2022-01-20] MEDS ORDERED: REQUIP 1MG T1 MG/TAB PO (12:14)
[2022-01-20] MEDS ORDERED: TYLENOL 500MG500 MG PO (12:14)
[2022-01-20] MEDS ORDERED: NEURONTIN300 MG/CAP PO (12:14)
[2022-01-20] MEDS ORDERED: CYMBALTA 60MG60 MG PO (12:14)
[2022-01-20] MEDS ORDERED: AMITRIPTYLINE H10 M1 PO (12:14)
[2022-01-20] MEDS ORDERED: DETROL LA4 PO (12:15)
[2022-01-20] MEDS ORDERED: PEPCID 20MG TAB20 MG PO (12:15)
[2022-01-20] MEDS ORDERED: MIRALAX510G PO (12:15)
[2022-01-20] MEDS ORDERED: VITAMIN D31000 IU PO (12:16)
[2022-01-20] MEDS ORDERED: B-121000 MCG PO (12:16)
[2022-01-20] MEDS ORDERED: MELATIN 3 MG-11 TAB PO (12:16)
[2022-01-20] MEDS ORDERED: MYRBETR50MG PO (12:16)
[2022-01-20] MEDS ORDERED: TOVIAZ8 MG PO (12:16)
[2022-01-20] MEDS ORDERED: OSCAL 500 TAB500 MG PO (12:17)
--- NOTE | 2022-01-20 13:03 | NUR ---
[facility] patient for admit on Sunday. Phone call received from Lisa at [facility] that they are able to accpet this patient for admit today. CARMEN spoke with the patient and she is agreeable to go to [facility] in today. Patients clinical updates, discharge orders and DPOA-HC faxed to Lisa. Transportation arranged for 1300. Patient's care team updated. CARMEN took time to speak with the patient about Alix and Jian revoking their DPOA-HC and that be it on paper or not, her son Renzo is her DPOA-HC as he is her only child and she is . Patient becomes tearful and states that she doesn't trust him and does not want him to be her DPOA-HC. Educated the patient that if she had someone else that she would like to appoint i would be happy to give them a call to see if they would agree. Patient is unable to provide me with anyone elses informatin. CARMEN reeducated the patient that Renzo can only step in and make medical decision if she was unable to make decision on her own. Patient is able to verbalize her understanding on this by utilizing the teach back method. Phone call made to the patient's son Renzo and explained the above. He is unhappy with his mother going to [facility] as he [facility] talking [facility]. Informed him that i have not received word on acceptance from [facility] at this time and since the patient is able to make her own decisions, she will be discharged to [facility]. Discharge plan: [facility] @ 1300
[2022-01-20 13:11] VITALS: BP 127/44; PULSE 81; TEMP 98.6
== END 2022-01-20 14:45 | DRG 481 ==
LOC: COL.ER 13:50 → SURG 15:37
PROVIDERS: Orthopaedic Surgery; Physician Assistant; ADMIT Internal Medicine
PROC: 0HQEXZZ Repair Left Lower Arm Skin, External Approach (ICD-10-PCS; 2022-01-16)
PROC: 0QS704Z Reposition Left Upper Femur with Internal Fixation Device, Open Approach (ICD-10-PCS; principal; 2022-01-19 14:00)
DX: S72.142A Displaced intertrochanteric fracture of left femur, initial encounter for closed fracture (principal); I48.20 Chronic atrial fibrillation, unspecified; D64.9 Anemia, unspecified; E78.5 Hyperlipidemia, unspecified; Z66 Do not resuscitate; F32.A Depression, unspecified; F41.9 Anxiety disorder, unspecified; G25.81 Restless legs syndrome; S40.812A Abrasion of left upper arm, initial encounter; W01.0XXA Fall on same level from slipping, tripping and stumbling without subsequent striking against object, initial encounter; S93.402A Sprain of unspecified ligament of left ankle, initial encounter; D32.9 Benign neoplasm of meninges, unspecified; N32.81 Overactive bladder; I10 Essential (primary) hypertension; Z20.822 Contact with and (suspected) exposure to COVID-19; I25.10 Atherosclerotic heart disease of native coronary artery without angina pectoris; K21.9 Gastro-esophageal reflux disease without esophagitis; M19.90 Unspecified osteoarthritis, unspecified site; M35.00 Sjogren syndrome, unspecified; F03.90 Unspecified dementia, unspecified severity, without behavioral disturbance, psychotic disturbance, mood disturbance, and anxiety; Z79.82 Long term (current) use of aspirin; Z88.1 Allergy status to other antibiotic agents; Z79.01 Long term (current) use of anticoagulants; Z86.73 Personal history of transient ischemic attack (TIA), and cerebral infarction without residual deficits; Z86.718 Personal history of other venous thrombosis and embolism; Y93.89 Activity, other specified; Y92.89 Other specified places as the place of occurrence of the external cause; Z90.710 Acquired absence of both cervix and uterus; Z90.49 Acquired absence of other specified parts of digestive tract; Z88.8 Allergy status to other drugs, medicaments and biological substances
CPT/HCPCS: A4314; A9284; C1713; J0690; J1170; J1644; J2250; J2370; J2704; J3475; J7121